=== PATIENT | female | born 1990 | race Caucasian/White ===

== ENCOUNTER 2025-05-12 09:22 | Observation (INO) | payer OTHER ==
[~2025-05-12] VITALS: Ht 167.6 cm; Wt 126.7 kg
[2025-05-12] MEDS ORDERED: Ondansetron HCl 2 MG / ML 2ML Vial IV ONE ×2 (10:35→18:00)
[2025-05-12 11:10] LABS: BASOPHILS ABSOLUTE AUTO 0.05 K/mm3 (0.00-0.23); BASOPHILS PERCENT AUTO 0 % (0-2); EOSINOPHILS ABSOLUTE AUTO 0.15 K/mm3 (0.00-0.68); EOSINOPHILS PERCENT AUTO 1 % (0-6); Hematocrit 41.0 % (33.0-51.0); Hemoglobin 13.3 g/dL (11.5-16.0); IMMATURE GRAN ABSOLUTE AUTO 0.17 K/mm3 (0.00-0.10); IMMATURE GRAN PERCENT AUTO 1 % (0-1); LYMPHOCYTES ABSOLUTE AUTO 1.60 K/mm3 (0.84-5.20); LYMPHOCYTES PERCENT AUTO 7 % (21-46); MONOCYTES ABSOLUTE AUTO 1.17 K/mm3 (0.16-1.47); MONOCYTES PERCENT AUTO 5 % (4-13); Mean Corpuscular HGB Conc 32.4 g/dL (31.5-36.5); Mean Corpuscular Volume 88 fL (80-100); NEUTROPHILS ABSOLUTE AUTO 18.60 K/mm3 (1.96-9.15); NEUTROPHILS PERCENT AUTO 86 % (41-73); NRBC ABSOLUTE 0.00 K/mm3 (0.00-0.02); NRBC Auto 0.0 /100 WBC (0.0-0.2); Platelet Count 287 K/mm3 (150-400); RDW Coefficient Variation 13.2 % (11.7-14.2); RDW Standard Deviation 43.0 fL (35.1-46.3)
[2025-05-12 11:49] LABS: Alanine Aminotransfer (ALT/SGP 20.0 U/L (12-78); Albumin, Blood 3.7 g/dL (3.4-5.0); Albumin/Globulin Ratio 1.0 (0.8-1.8); Anion Gap 8.0 mmol/L (3-11); Aspartate Aminotrans (AST/SGOT 13.0 U/L (12-37); Bilirubin, Total 0.7 mg/dL (0.1-1.0); Blood Urea Nitrogen 10.0 mg/dL (8-24); CO2, Blood 24.0 mmol/L (21-32); Calcium, Blood 8.3 mg/dL (8.5-10.1); Chloride, Blood 107.0 mmol/L (98-108); Creatinine, Blood 0.75 mg/dL (0.40-1.00); Globulin, Blood 3.8 g/dL (2.2-4.0); Glucose, Blood 123.0 mg/dL (70-99); Potassium, Blood 3.9 mmol/L (3.5-5.5); Sodium, Blood 135.0 mmol/L (136-145); Total Protein, Blood 7.5 g/dL (6.4-8.2)
[2025-05-12] MEDS ORDERED: HYDROmorphone HCl/Pf 1MG SYR IV ONE (18:00)
[2025-05-12] MEDS ORDERED: NS 1,000 ML IV SCH (18:00)
[2025-05-12] MEDS ORDERED: Ampicillin Sod/Sulbactam Sod 3 GM in NS 100 ML IV ONE (18:00)
[2025-05-12] MEDS ORDERED: Ketorolac Tromethamine 15mg Vial IV ONE (18:15)
[2025-05-12] MEDS ORDERED: HYDROmorphone HCl/Pf 1MG SYR IV PRN (18:25)
[2025-05-12] MEDS ORDERED: Ondansetron HCl 2 MG / ML 2ML Vial IV PRN (18:30)
[2025-05-12] MEDS ORDERED: Ketorolac Tromethamine 15mg Vial IV PRN (18:35)
[2025-05-12 20:39] VITALS: BP 132/66
[2025-05-13] VITALS (12 sets, daily range): BP systolic 108–153; BP diastolic 63–80
[2025-05-13] MEDS ORDERED: Ampicillin Sod/Sulbactam Sod 3 GM in NS 100 ML IV SCH (00:30)
--- NOTE | 2025-05-13 05:36 | NUR ---
PT A&O X4, ADMITTED FROM ED WITH ABSCESS, SIGNIFICANT PAIN MEDICATED WITH DILAUDID. NPO AFTER MN FOR I&D TODAY. VS WNL, REMAINS ON IVF AND IVABX. WILL D/C HOME, USES CALL SYSTEM APPROPRIATELY.
[2025-05-13] MEDS ORDERED: Bupivacaine 0.5% W/EPI 1:200000 SDV 30 ML Vial ONE (08:04)
[2025-05-13] MEDS ORDERED: FentaNYL Citrate 50 MCG/ML 2 ML Injection ONE (08:06)
[2025-05-13] MEDS ORDERED: Dexamethasone Sod Phos 10 MG/ML 1ML VIAL ONE (08:17)
[2025-05-13] MEDS ORDERED: Ondansetron HCl 2 MG / ML 2ML Vial ONE (08:17)
[2025-05-13] MEDS ORDERED: Phenylephrine HCl 100 MCG/ML-NS 10MLSYR (1MG/10ML) ONE (08:22)
--- NOTE | 2025-05-13 08:29 | NUR ---
05/13/25 0829 Rosalba Leal PT ON SCHEDULED ANTIBIOTICS
[2025-05-13] MEDS ORDERED: HYDROmorphone HCl/Pf 1MG SYR ONE (09:04)
[2025-05-13] MEDS ORDERED: Ketorolac Tromethamine 30mg Vial ONE (09:05)
[2025-05-13] MEDS ORDERED: Acetaminophen650 M1 PO (09:59)
[2025-05-13] MEDS ORDERED: CIPR500 PO (10:00)
[2025-05-13] MEDS ORDERED: METR500 PO (10:01)
[2025-05-13] MEDS ORDERED: OXYC5 PO (10:01)
--- NOTE | 2025-05-13 12:28 | NUR ---
PATIENT TAKEN TO SURGERY AT 0755 THIS AM FOR I&D. ALERT AND ORIENTED X4. DENIES PAIN AT THIS TIME. UP IND TO BATHROOM. ON ROOM AIR. VITAL SIGNS STABLE. DENIES CHEST PAIN/PRESSURE/PALPITATIONS. NPO PRIOR TO SURGERY. FLUIDS INFUSED PER EMAR. PATIENT BACK FROM SURGERY AND OKAY TO DISCHARGE PER DR. STEWART. PATIENT NAUSEAOUS AND NAUSEA MEDICATION GIVEN WITH GOOD RELIEF. PATIENT ABLE TO EAT AND WALK IND TO BATHROOM TO VOID. GAUZE/UNDERWEAR AND KM BOTTLES PROVIDED AND PATIENT EDUCATED ON USE. IV REMOVED WNL. FAMILY AT BEDSIDE FOR DISCHARGE INSTRUCTIONS. PATIENT LEFT UNIT WITH ALL PERSONAL BELONGINGS AND DISCHARGE PACKET.
== END 2025-05-13 12:20 | disposition home or self-care (01) ==
LOC: ER 09:22 → SURS 09:23 → MEDS 09:23
PROVIDERS: Student in an Organized Health Care Education/Training Program; ADMIT Surgery
PROC: 0D9QXZZ Drainage of Anus, External Approach (ICD-10-PCS; principal; 2025-05-13 08:00)
DX: K61.0 Anal abscess (principal)
CPT/HCPCS: 10160; 72193; 80053; 83605; 85025; 96365-59; 96366; 96375-59; 96376; 96376-59; 99284-25; G0378; J0295; J1100; J1171; J1885; J2371; J2405; J2704; J3010; J7030; J7120; Q9967

== ENCOUNTER 2025-05-24 14:31 | Emergency (ER) | payer OTHER ==
[~2025-05-24] VITALS: Ht 167.6 cm; Wt 127.5 kg
[~2025-05-24 14:31] MED LIST: Acetaminophen650 M1 PO; CIPR500 PO; METR500 PO; OXYC5 PO
[2025-05-24] MEDS ORDERED: Ondansetron 4 MG SoluTab SL ONE (16:15)
[2025-05-24 17:09] LABS: BASOPHILS ABSOLUTE AUTO 0.07 K/mm3 (0.00-0.23); BASOPHILS PERCENT AUTO 1 % (0-2); EOSINOPHILS ABSOLUTE AUTO 0.06 K/mm3 (0.00-0.68); EOSINOPHILS PERCENT AUTO 0 % (0-6); Hematocrit 41.9 % (33.0-51.0); Hemoglobin 14.0 g/dL (11.5-16.0); IMMATURE GRAN ABSOLUTE AUTO 0.08 K/mm3 (0.00-0.10); IMMATURE GRAN PERCENT AUTO 1 % (0-1); LYMPHOCYTES ABSOLUTE AUTO 2.22 K/mm3 (0.84-5.20); LYMPHOCYTES PERCENT AUTO 16 % (21-46); MONOCYTES ABSOLUTE AUTO 0.84 K/mm3 (0.16-1.47); MONOCYTES PERCENT AUTO 6 % (4-13); Mean Corpuscular HGB Conc 33.4 g/dL (31.5-36.5); Mean Corpuscular Volume 86 fL (80-100); NEUTROPHILS ABSOLUTE AUTO 10.78 K/mm3 (1.96-9.15); NEUTROPHILS PERCENT AUTO 77 % (41-73); NRBC ABSOLUTE 0.00 K/mm3 (0.00-0.02); NRBC Auto 0.0 /100 WBC (0.0-0.2); Platelet Count 269 K/mm3 (150-400); RDW Coefficient Variation 13.1 % (11.7-14.2); RDW Standard Deviation 40.5 fL (35.1-46.3)
[2025-05-24] MEDS ORDERED: ONDA4ODT MM (17:37)
[2025-05-24] MEDS ORDERED: RX Prepack 2 Tabs Ondansetron ODT 4MG UD ONE (17:40)
[2025-05-24] MEDS ORDERED: RX Prepack 6 Tabs Oxycodone 5mg UD ONE (17:40)
[2025-05-24] MEDS ORDERED: CIPR500 PO (17:46)
[2025-05-24] MEDS ORDERED: OXAYDO5 M1 PO (17:48)
== END 2025-05-24 17:56 | disposition home or self-care (01) ==
LOC: ER 14:31
PROVIDERS: Student in an Organized Health Care Education/Training Program
DX: K61.0 Anal abscess (principal); Z79.899 Other long term (current) drug therapy
CPT/HCPCS: 72193; 85025; 87070; 87075; 87076; 87205; 99283-25; A9270; Q9967